=== PATIENT | female | born 1945 | race Caucasian/White ===

== ENCOUNTER 2022-12-08 11:09 | Day surgery (SDC) | payer OTHER ==
--- NOTE | 2022-12-03 09:00 | RAD REPORT ---
EXAM DESCRIPTION: RAD - Chest Pa And Lat (2 Views) - 12/03/2022 8:54 am CLINICAL HISTORY: pre op for surgery COMPARISON: Thorax Wo Con dated 08/24/2018 FINDINGS: Lines: Left subclavian approach pacemaker. Lungs: No evidence of edema or pneumonia. Pleural: No significant pleural effusions or pneumothorax. Cardiac: The heart size is within normal limits. Mediastinum: Within normal limits. Bones: No acute fractures. Other: None IMPRESSION: No acute cardiopulmonary disease.
[2022-12-03 09:15] LABS: Absolute Lymphocytes (CBC) 1.5 K/uL (0.7-4.9); Hematocrit 40.6 % (36.0-45.0); Lymphocytes % 23.7 % (15.3-44.8); MCV 83.6 fL (80-100); MPV 9.1 fL (7.6-11.3); RBC Red Blood Cell Count 4.86 M/uL (3.86-4.86)
[2022-12-03 09:19] LABS: Protime INR 0.9
[2022-12-03 09:22] LABS: Potassium 3.4 mmol/L (3.5-5.1)
--- NOTE | 2022-12-03 15:20 | EKG ---
Test Date: 2022-12-03 Test Time: 08:37:14 Personal Property Appraiser: MONESRRAT MEASUREMENT RESULTS: Intervals: Rate: 70 NV: 180 QRSD: 84 QT: 408 QTc: 440 [place]: P: 56 NV: 180 QRS: 48 T: 44 INTERPRETIVE STATEMENTS: Normal sinus rhythm Normal ECG Compared to ECG 02/08/2011 06:05:29 No significant changes Electronically Signed On 12-03-22 15:20:08 CLINIC NURSE by Martinez Wang
[2022-12-08] MEDS ORDERED: Ringers Lactate 1,000 ML IV ONE (11:32)
[2022-12-08] MEDS ORDERED: CLINDAMYCIN 600MG/D5W 50 ML IV ONE ×2 (12:52→13:00)
[2022-12-08] MEDS ORDERED: FENTANYL CITR 100 MCG/2 ML ONE (12:57)
[2022-12-08] MEDS ORDERED: propofoL 200 MG/20 ML VIAL IV ONE (12:57)
[2022-12-08] MEDS ORDERED: NS 0.9% VIAL 0 ML ONE (12:57)
[2022-12-08] MEDS ORDERED: LIDOCAINE 1% MPF 5 ML VIAL ONE (12:57)
[2022-12-08] MEDS ORDERED: Gentamicin Inj 160 MG in NA CHLORIDE 0.9% 100 ML IV ONE (13:00)
[2022-12-08] MEDS ORDERED: KETOROLAC 30 MG/ML INJ ONE (13:24)
[2022-12-08] MEDS ORDERED: ONDANSETRON 4 MG/2 ML VIAL ONE (13:24)
[2022-12-08] MEDS ORDERED: EPHEDRINE SULF 50 MG/ML VIAL ONE (13:41)
[2022-12-08] MEDS ORDERED: CODEINE 30MG/APAP 300MG TAB PO PRN (14:06)
[2022-12-08] MEDS ORDERED: PHENAZOPYRIDINE 100MG TAB PO ONE ×3 (14:06→14:42)
[2022-12-08] MEDS ORDERED: CODEINE 30MG/APAP 300MG TAB ONE (14:39)
[2022-12-08 15:28] VITALS: BP 123/55; TEMP 98.4; O2SAT 96
--- NOTE | 2022-12-09 10:34 | OP ---
Surgeon: GEORGIANA JIMÉNEZ Preoperative Diagnosis: Bladder lesion. Postoperative Diagnosis: Bladder lesion. Principal Procedure: Cystoscopy with bladder biopsies and fulguration. Indication For Procedure: Ms. Connor is a 76-year-old woman who presented to the Urology Clinic with a history of recurrent urinary tract infections associated with irritative and obstructive urinary s ymptoms. Cystoscopic evaluation revealed persistence of a large erythematous patch within the right posterior wall of the bladder and as a result, given the risk of CIS associated with the patch, cysto scopy and bladder biopsy were recommended. Procedure In Detail: The patient was consented in the preoperative holding area before being transfe rred to the operative suite where general anesthesia was induced. She was given clindamycin 600 mg a nd gentamicin 160 mg IV antimicrobial prophylaxis. Pneumoboots were provided for DVT prophylaxis. S he was placed in the lithotomy position, padded and secured to the table appropriately. Her genitali a were prepped with Hibiclens and she was draped in standard fashion. The case was begun using a 22- [place] rigid cystoscope to traverse the urethra and into the bladder with ease. The bladder was deco mpressed off urine and then surveyed in its entirety using white light as well as narrow band imaging . Clearly visible with white light within the right posterior wall of the bladder was the approximat case 2-3 cm in diameter circumferential patch that had been observed cystoscopically. However, on ngoc row band imaging within the left posterolateral wall of the bladder, an additional suspicious patch w as visualized that was not visible with white light cystoscopy. She did have evidence of chronic cys titis with inflammatory change throughout the remainder of the bladder and in the dome region and pos teriorly, but this was relatively nonsuspicious on white light and not distinctly more suspicious on narrow band imaging. As a result, targeted biopsies were taken of the areas within the right posteri or as well as the left lateral wall with at least 3 biopsies to ensure adequate sampling of each lesi on was taken. I then fulgurated each of the base of the lesions until it was completely hemostatic w ith the bladder decompressed. I then removed the cystoscope and took the patient out of the lithotom y position after decompressing her bladder. She was then awakened from general anesthesia, transferr ed to a stretcher, and then transferred to the recovery room in good condition. Complications: None. Discharge Disposition: She should follow up in the Urology Clinic in about 2 weeks' time to discuss the results of the pathology and to determine next steps in the management of her recurrent UTIs. Of course, she also has a cystocele, which could contribute to some incomplete bladder emptying and the se recurrent infections. She would benefit from seeing Dr. Mac or a female urologist for potent ial repair of that, depending on whether it is contributory. HUSSEIN/SCAR Voice ID: [id number] Report ID: [id number]
== END 2022-12-08 17:30 | disposition home or self-care (01) ==
LOC: OR 11:09
PROVIDERS: ATTEND Urology
PROC: 0TBB8ZX Excision of Bladder, Via Natural or Artificial Opening Endoscopic, Diagnostic (ICD-10-PCS; principal; 2022-12-08 12:45)
DX: N32.9 Bladder disorder, unspecified (principal); I10 Essential (primary) hypertension; E03.9 Hypothyroidism, unspecified; Z85.3 Personal history of malignant neoplasm of breast; I48.91 Unspecified atrial fibrillation
CPT/HCPCS: 52204; 93005; 87088; 85025; 87086; 80048; 36415; 85610; 88305; 85730; 71046; J2704; J2001; J1580; J3010; J7120; J2405; A4216